=== PATIENT | male | born 1955 | race Caucasian/White ===

== ENCOUNTER → 2017-12-08 | Outpatient (CLI) | payer BC ==
[~2017-12-08] MED LIST: LEVO100T5 PO; LOVA20TA2 PO; levothyroxine PO
== END | disposition home or self-care (01) ==
LOC: STAR 14:49
PROVIDERS: ATTEND Orthopaedic Surgery
DX: Z01.818 Encounter for other preprocedural examination (principal); M25.511 Pain in right shoulder
CPT/HCPCS: 93005

== ENCOUNTER 2017-12-15 07:37 | Day surgery (SDC) | payer BC ==
[~2017-12-15] VITALS: Ht 177.8 cm; Wt 76.0 kg
[~2017-12-15 07:37] MED LIST changes: +BUPIVACAINE/PF 0.5% ONE; +EPINEPHRINE 1 MG/ML, 1ML ONE; +LIDOCAINE/PF 1%, 30ML ONE; +ROPIvacaine/PF 0.5%, 30 ML ONE
[2017-12-15] MEDS ORDERED: MIDAZOLAM 1 MG/ML, 2ML ONE (08:19)
[2017-12-15] MEDS ORDERED: FENTANYL PF 100 MCG/2ML ONE ×2 (08:19→09:37)
[2017-12-15] MEDS ORDERED: ALBUTEROL SULFATE 2.5 MG/3 ML NPPB PRN (08:30)
[2017-12-15] MEDS ORDERED: METOPROLOL 1 MG/ML, 5ML IV PRN (08:30)
[2017-12-15] MEDS ORDERED: LABETALOL 5MG/ML, 20ML IV PRN (08:30)
[2017-12-15] MEDS ORDERED: OXYcodone 5 MG/5 ML ORAL.SOL UDC PO PRN (08:30)
[2017-12-15] MEDS ORDERED: MEPERIDINE/PF 25MG/0.5ML IVPush PRN (08:30)
[2017-12-15] MEDS ORDERED: PROMETHAZINE 25 MG/ML, 1ML IV PRN (08:30)
[2017-12-15] MEDS ORDERED: ACETAMINOPHEN 325 MG TABLET PO PRN (08:30)
[2017-12-15] MEDS ORDERED: hydrALAzine 20 MG/ML, 1ML IV PRN (08:30)
[2017-12-15] MEDS ORDERED: MORPHINE SULFATE 4 MG/ML, 1ML IV PRN (08:30)
[2017-12-15] MEDS ORDERED: EPHEDRINE 50 MG/ML, 1ML IVPush PRN (08:30)
[2017-12-15] MEDS ORDERED: FENTANYL PF 100 MCG/2ML IV PRN (08:30)
[2017-12-15] MEDS ORDERED: NEOSTIGMINE 1 MG/ML, 10ML ONE (08:39)
[2017-12-15] MEDS ORDERED: GLYCOPYRROLATE 0.2MG/1ML, 5ML ONE (08:39)
[2017-12-15] MEDS ORDERED: LEVOTHYROXINE 100 MCG TABLET PO SCH (09:00)
[2017-12-15] MEDS ORDERED: LACTATED RINGERS 1,000 ML IV SCH (09:00)
[2017-12-15] MEDS ORDERED: ONDANSETRON ODT 8 MG ONE (09:36)
[2017-12-15] MEDS ORDERED: DEXAMETHASONE 4 MG/ML, 1ML ONE ×2 (09:36)
[2017-12-15] MEDS ORDERED: ROCURONIUM 10MG/ML,5ML ONE (09:36)
[2017-12-15] MEDS ORDERED: CEFAZOLIN 1,000 MG ONE ×2 (09:36)
[2017-12-15] MEDS ORDERED: PROPOFOL 10 MG/ML, 20ML ONE (09:36)
[2017-12-15] MEDS: ONDANSETRON 2MG/ML, 2ML IVPush PRN ×2 (11:30→11:35)
[2017-12-15] MEDS ORDERED: ONDANSETRON 2MG/ML, 2ML ONE (11:32)
[2017-12-15] MEDS ORDERED: OXYcodone 5 MG/5 ML ORAL.SOL UDC ONE (11:33)
[2017-12-15] MEDS ORDERED: OXYcodone IR 5MG TABLET ONE (13:53)
[2017-12-15] MEDS ORDERED: LOVASTATIN 20 MG TABLET PO SCH (21:00)
== END 2017-12-15 17:15 | disposition home or self-care (01) ==
LOC: OUT 07:37
PROVIDERS: ATTEND Orthopaedic Surgery
DX: S43.431A Superior glenoid labrum lesion of right shoulder, initial encounter (principal); M75.41 Impingement syndrome of right shoulder; M19.011 Primary osteoarthritis, right shoulder; M65.811 Other synovitis and tenosynovitis, right shoulder; M66.811 Spontaneous rupture of other tendons, right shoulder; E03.9 Hypothyroidism, unspecified; X58.XXXA Exposure to other specified factors, initial encounter; Y93.89 Activity, other specified; Y92.89 Other specified places as the place of occurrence of the external cause; Y99.8 Other external cause status; Z87.891 Personal history of nicotine dependence; Z72.89 Other problems related to lifestyle
CPT/HCPCS: 29824; 29826; 29827; 29828; C1713; J0171; J0690; J1100; J2250; J2405; J2704; J2710; J3010; J3490; J7120; Q0162; J2795